=== PATIENT | female | born 1990 | race Caucasian/White ===

== ENCOUNTER 2022-02-20 04:26 | Day surgery (SDC) | payer BC ==
[2022-02-17 11:05] VITALS: BMI 24.3
[2022-02-20] MEDS ORDERED: ONDANSETRON 4 MG/2 ML VIAL IVPUSH PRN (12:05)
[2022-02-20] MEDS ORDERED: LACTATED RINGERS SOLUTION 1,000 ML IV SCH (12:15)
[2022-02-20] MEDS ORDERED: PROPOFOL 20 ML ONE (12:15)
[2022-02-20] MEDS ORDERED: MIDAZOLAM HCL 2 MG/2 ML SINGLE DOSE VIAL ONE (12:15)
[2022-02-20] MEDS ORDERED: SUCCINYLCHOLINE CHLORIDE 200 MG/10 ML SYRINGE ONE (12:15)
[2022-02-20] MEDS ORDERED: ROCURONIUM BROMIDE 50 MG/5 ML SYRINGE ONE (12:15)
[2022-02-20] MEDS ORDERED: IBUPROFEN 800 MG/8 ML IJ IVPB PRN (13:05)
[2022-02-20] MEDS ORDERED: ACETAMINOPHEN 325 MG TABLET (FP) PO PRN (13:05)
[2022-02-20] MEDS ORDERED: HYDROmorphone HCl 2 MG/ML VIAL ONE (13:24)
[2022-02-20] MEDS ORDERED: ceFAZolin SODIUM 1 GM VIAL IVPB ONE (13:27)
[2022-02-20] MEDS ORDERED: NEOSTIGMINE METHYLSULFATE 0.5 MG/ML - 10 ML MDV ONE (13:53)
[2022-02-20] MEDS ORDERED: GLYCOPYRROLATE 0.2 MG/1 ML VIAL ONE ×2 (13:53)
[2022-02-20] MEDS ORDERED: BUPIVACAINE HCL/PF 0.5% (5 MG/ML) 30 ML VIAL IJ ONE (14:01)
[2022-02-20 15:21] VITALS: TEMP 97.2
[2022-02-20 18:39] VITALS: BP 112/65; PULSE 80; RESP 20
== END 2022-02-20 16:06 | disposition home or self-care (01) ==
LOC: JASU-SURG 04:26
PROVIDERS: ATTEND Obstetrics & Gynecology
PROC: 0UL74ZZ Occlusion of Bilateral Fallopian Tubes, Percutaneous Endoscopic Approach (ICD-10-PCS; principal; 2022-02-20 11:30)
DX: Z30.2 Encounter for sterilization (principal)
CPT/HCPCS: 81025; 88305-TC; 94760

== ENCOUNTER 2024-03-05 05:27 | Day surgery (SDC) | payer BC ==
[2024-03-05] MEDS: ceFAZolin SODIUM 1 GM VIAL IVPB ONE
[2024-03-05 07:24] VITALS: BMI 24.2
[2024-03-05] MEDS ORDERED: oxyCODONE HCL 5 MG TABLET PO PRN (07:59)
[2024-03-05] MEDS ORDERED: ONDANSETRON 4 MG/2 ML VIAL IVPUSH PRN (07:59)
[2024-03-05] MEDS ORDERED: KETOROLAC TROMETHAMINE 30 MG/1 ML VIAL ONE (09:05)
[2024-03-05] MEDS ORDERED: PROPOFOL 20 ML ONE ×2 (09:05→09:06)
[2024-03-05] MEDS ORDERED: DEXAMETHASONE SOD PHOSPHATE 4 MG/1 ML VIAL ONE (09:05)
[2024-03-05] MEDS ORDERED: ONDANSETRON 4 MG/2 ML VIAL ONE (09:05)
[2024-03-05] MEDS ORDERED: MIDAZOLAM HCL 2 MG/2 ML SINGLE DOSE VIAL ONE (09:06)
[2024-03-05] MEDS ORDERED: IBUPROFEN 400 MG TABLET (FP) PO PRN (09:11)
[2024-03-05] MEDS ORDERED: ACETAMINOPHEN 325 MG TABLET (FP) PO PRN (09:11)
[2024-03-05] MEDS: LACTATED RINGERS SOLUTION 1,000 ML IV SCH (10:26)
[2024-03-05 11:29] VITALS: RESP 20
[2024-03-05 12:20] VITALS: BP 128/85; PULSE 54; TEMP 97.3
== END 2024-03-05 12:00 | disposition home or self-care (01) ==
LOC: JASU-SURG 05:27
PROVIDERS: ATTEND Obstetrics & Gynecology
PROC: 0U5B8ZZ Destruction of Endometrium, Via Natural or Artificial Opening Endoscopic (ICD-10-PCS; principal; 2024-03-05 09:00)
DX: N93.9 Abnormal uterine and vaginal bleeding, unspecified (principal)
CPT/HCPCS: 81025; 88305-TC; 94760